=== PATIENT | female | born 1985 | race Caucasian/White ===

== ENCOUNTER 2017-05-19 21:34 | Emergency (ER) | payer MEDICAID ==
[~2017-05-19] VITALS: Ht 149.9 cm; Wt 72.0 kg
[2017-05-19 21:40] VITALS: BP 110/67; PULSE 98; RESP 12; TEMP 99.4; O2SAT 99
[2017-05-19] MEDS ORDERED: DEXAMETHASONE SOD PHOS 4 MG/ML VIAL IM ONE (23:00)
[2017-05-19] MEDS ORDERED: PENI500T PO (23:05)
--- NOTE | 2017-05-19 23:06 | PD ---
HPI Chief Complaint: ENT Complaint Time Seen by Provider: 22:59 Travel History International Travel<30 days: No Contact w/Intl Traveler<30days: No Traveled to known affect area: No History of Present Illness HPI 31-year-old female presents with sore throat, chills, nasal congestion and general ill feeling over the past couple of days. She states she had a fever yesterday but has not had one today. She states it hurts when she swallows. She denies other concurrent complaints. She states she's had frequent history of strep throat. She denies other specific modifying factors. [facility]MERLY [facility], [facility] Past Medical History Medical History: Denies Significant Hx Past Surgical History Surgical History: No Previous Surgery Social History Tobacco Use: No Allergies-Medications (Allergen,Severity, Reaction): Coded Allergies: No Known Allergies (Unverified , 05/19/17) Reported Meds & Prescriptions Reported Meds & Active Scripts Active Penicillin V Potassium 500 Mg Tab 500 Mg PO BID 10 Days Review of Systems Except as stated in HPI: all other systems reviewed are Neg Physical Exam Narrative General: No apparent distress, well appearing ENT: Posterior oropharyngx clear mild erythema and tonsillar hypertrophy noted, mild exudates noted, uvula midline, no peritonsillar abscess, external auditory canals are normal. Bilateral TM clear Neck: Neck is supple, no meningeal signs, trachea is midline Cardiovascular: Regular rate and rhythm Lungs: No increased respiratory effort noted, CTA bilaterally Extremities: No edema Neuro: Awake, motor and sensation grossly intact, normal speech Data Data Last Documented VS Vital Signs Date Time Temp Pulse Resp B/P Pulse Ox O2 Delivery O2 Flow Rate FiO2 05/19/17 21:40 99.4 98 12 110/67 99 Room Air Orders Dexamethasone Inj (Decadron Inj) (05/19/17 23:00) Ibuprofen (Motrin) (05/19/17 23:15) MDM Medical Decision Making Medical Screen Exam Complete: Yes Emergency Medical Condition: Yes Medical Record Reviewed: Yes (past history confirmed) Differential Diagnosis URI, strep pharyngitis, allergies Narrative Course Will dose with Decadron and Motrin here and send home on penicillin for likely strep pharyngitis. Patient agrees to plan of care. Advised to follow closely with primary and given recurrence possible ENT referral. Given return instructions. Agrees to plan of care Diagnosis Primary Impression: Pharyngitis Qualified Code: J02.9 - Pharyngitis, unspecified etiology Patient Instructions: General Instructions Additional Instructions: return as needed, follow with primary this week, tylenol and motrin as needed for pain Med/Other Pt SpecificInfo: Prescription(s) given Scripts Penicillin V Potassium 500 Mg [id number] Mg PO BID 10 Days Prov:Amanda Gilmore MD 05/19/17 Disposition: 01 DISCHARGE HOME Condition: Stable Amanda Gilmore MD May 19, 2017 23:06
[2017-05-19] MEDS ORDERED: IBUPROFEN 600 MG TAB PO ONE (23:15)
== END 2017-05-19 23:21 | disposition home or self-care (01) ==
LOC: NEPC 21:34
DX: J02.9 Acute pharyngitis, unspecified (principal)
CPT/HCPCS: 96372; 99284; J1100

== ENCOUNTER 2017-10-04 09:15 | Emergency (ER) | payer MEDICAID ==
[~2017-10-04] VITALS: Ht 149.9 cm; Wt 60.0 kg
[~2017-10-04 09:15] MED LIST: PENI500T PO
[2017-10-04 09:19] VITALS: BP 115/74; PULSE 78; RESP 14; TEMP 97.6; O2SAT 100
[2017-10-04] MEDS ORDERED: NITROFURANTOIN MONOHYD MACROCR 100 MG CAP PO ONE (09:45)
--- NOTE | 2017-10-04 10:16 | PD ---
HPI Chief Complaint: Complaint Time Seen by Provider: 09:32 Travel History International Travel<30 days: No Contact w/Intl Traveler<30days: No Traveled to known affect area: No History of Present Illness HPI 32-year-old female came to the emergency room with history of dysuria and suprapubic pain for past 3 days. Patient says that she thinks she has a UTI. She had a very bad UTI when she was 17 years old and is scared to have another one like that this time. No history of fever or chills. No history of nausea vomiting. Vital signs were stable. Upon asking patient said there was no chance she could be . No history of vaginal discharge. She also showed a painful bump on her right thigh posteriorly that she thinks is slowly going down now. [facility] Past Medical History Narrative Medical List of her past medical, surgical, social and family history is reviewed from the nursing note. ?: Not Social History Tobacco Use: No Allergies-Medications (Allergen,Severity, Reaction): Coded Allergies: No Known Allergies (Unverified , 05/19/17) Comments No known drug allergies. Reported Meds & Prescriptions Reported Meds & Active Scripts Active Bacitracin Topical 500 Unit/Gm Oint 1 Applic TOPICAL BID Macrobid (Nitrofurantoin Monoh/Nitrofur Macro) 100 Mg Cap 100 Mg PO BID 10 Days Penicillin V Potassium 500 Mg Tab 500 Mg PO BID 10 Days Narrative Medication List of her home medications reviewed from the nursing note. Review of Systems Except as stated in HPI: all other systems reviewed are Neg Genitourinary: Positive: Urgency, Frequency, Dysuria Physical Exam Narrative GENERAL: Awake, alert, no obvious distress SKIN: Focused skin assessment warm/dry. 0.5 mm tender swelling on the right mid posterior thigh. No fluctuance. A pustular head HEAD: Atraumatic. Normocephalic. EYES: Pupils equal and round. No scleral icterus. No injection or drainage. ENT: No nasal bleeding or discharge. Mucous membranes pink and moist. NECK: Trachea midline. No JVD. CARDIOVASCULAR: Regular rate and rhythm. No murmur appreciated. RESPIRATORY: No accessory muscle use. Clear to auscultation. Breath sounds equal bilaterally. GASTROINTESTINAL: Abdomen soft, non-tender, nondistended. Hepatic and splenic margins not palpable. MUSCULOSKELETAL: No obvious deformities. No clubbing. No cyanosis. No edema. NEUROLOGICAL: Awake and alert. No obvious cranial nerve deficits. Motor grossly within normal limits. Normal speech. PSYCHIATRIC: Appropriate mood and affect; insight and judgment normal. Data Data Last Documented VS Orders Orders Nitrofurantoin Monohyd Macrocr (Macrobid (10/04/17 09:45) Ed Urine Pregnancytest Poc (10/04/17 09:39) Urinalysis - C+S If Indicated (10/04/17 09:47) Urine Culture (10/04/17 09:50) Ed Discharge Order (10/04/17 10:50) Labs Laboratory Tests Test 10/04/17 09:50 Urine Color YELLOW Urine Turbidity CLEAR Urine pH 6.5 Urine Specific [place] 1.016 Urine Protein NEG mg/dL Urine Glucose (UA) NEG mg/dL Urine Ketones NEG mg/dL Urine Occult Blood SMALL Urine Nitrite NEG Urine Bilirubin NEG Urine Urobilinogen LESS THAN 2.0 MG/DL Urine Leukocyte Esterase SMALL Urine RBC 18 /hpf Urine WBC 25 /hpf Urine Squamous Epithelial Cells 1 /hpf Urine Bacteria MANY /hpf Urine Mucus FEW /lpf Microscopic Urinalysis Comment CULTURE INDICATED MDM Medical Decision Making Medical Screen Exam Complete: Yes Emergency Medical Condition: Yes Medical Record Reviewed: Yes Differential Diagnosis UTI, cystitis, folliculitis Narrative Course 10:16 AM patient has been given a dose of Macrobid since symptoms are significant for cystitis. Waiting for the UA. Urine is negative. 10:47 AM UA is positive for UTI. I am going to discharge her home with Macrobid prescription. Procedures EKG Prior to Arrival: No Diagnosis Primary Impression: Cystitis Additional Impression: Folliculitis Referrals: Primary Care Physician Additional Instructions: Take the medication as per the prescription direction. Return to the ER if condition worsens or any other new concerns. Drink cranberry juice. Drink lots of fluid. Med/Other Pt SpecificInfo: Prescription(s) given Scripts Bacitracin Topical (Bacitracin Topical) 500 Unit/Gm Oint 1 APPLIC TOPICAL BID for Infection, #30 GM 0 Refills Prov: Lori Krishnan MD 10/04/17 Nitrofurantoin Monohydrate Macrocrystals (Macrobid) 100 Mg Cap 100 MG PO BID for Infection for 10 Days, #20 CAP 0 Refills Prov: Lori Krishnan MD 10/04/17 Disposition: 01 DISCHARGE HOME Condition: Stable Lori Krishnan MD Oct 04, 2017 10:16
[2017-10-04 10:39] LABS: BACTERIA, URINE MANY /hpf; BILIRUBIN, URINE NEG (NEG); BLOOD, URINE SMALL (NEG); GLUCOSE,URINE NEG (NEG); KETONE, URINE NEG (NEG); MUCUS URINE FEW /lpf (OCC); NITRITE,URINE NEG (NEG); PH, URINE 6.5 (5.0-8.5); SQUAMOUS EPITHELIAL CELL URINE 1 /hpf (0-5); URINE COLOR YELLOW (YELLW/STRAW); URINE LEUKOCYTE ESTERASE SMALL (NEG)
[2017-10-04] MEDS ORDERED: BACI500O9 TOPICAL (10:49)
[2017-10-04] MEDS ORDERED: MACR100C2 PO (10:49)
== END 2017-10-04 10:57 | disposition home or self-care (01) ==
LOC: NEPD 09:15
DX: N30.90 Cystitis, unspecified without hematuria (principal); L73.9 Follicular disorder, unspecified
CPT/HCPCS: 81001; 84703; 87077; 87086; 87186; 99285